=== PATIENT | female | born 1990 | race Caucasian/White ===

== ENCOUNTER 2016-07-03 13:38 | Inpatient (IN) | payer OTHER ==
[2016-07-04] MEDS ORDERED: Sodium Chloride 0.9% 10 ML Syringe FLUSH PRN (19:01)
--- NOTE | 2016-07-04 19:09 | PCM.LDHP ---
L&D History of Present Illness - General Date of Service: 07/04/16 Admit Problem/Dx: Admission Diagnosis/Problem Admission Diagnosis/Problem Source of Information: Patient History Limitations: Reports: No limitations - History of Present Illness Introduction:: 25 y/o DONAVON 07/03/2016 EGLizbeth 40w2d presented to L&D for induction of labor GBS negative. Improves with: Reports: None Worsens with: Reports: None Associated Symptoms: Reports: N Past Medical History : 1 Para: 0 (0000) LMP (Approximate): Social & Family History - Family History Respiratory: Reports: Asthma (brother sports inducted), Other (see below) ( brother seasonal allergy) Hematologic: Reports: Other (see below) (maternal grandfather lymphoid cancer) H&P Review of Systems - Review of Systems: Review Of Systems: See Below General: Reports: no symptoms HEENT: Reports: no symptoms Pulmonary: Reports: No Symptoms Cardiovascular: Reports: no symptoms Gastrointestinal: Reports: No symptoms Genitourinary: Reports: no symptoms Musculoskeletal: Reports: no symptoms Skin: Reports: no symptoms Psychiatric: Reports: no symptoms Neurological: Reports: No Symptoms Hematologic/Lymphatic: Reports: no symptoms Immunologic: Reports: no symptoms L&D Exam - Exam Exam: See Below - OB Specific Fundal Height in cm: 38 movement: active heart tones: present heart tones per min: 140 Heart Rate (FHR) Variability: Moderate (6-25 bmp) Presentation: Vertex - Summers Score Summers Score Cervix Position: Posterior Summers Score Consistency: Soft Summers Score Effacement: >80% Summers Score Dilation: 1-2 cm Summers Score 's Station: -1 ,0 Summers Score Total: 8 - Exam General: alert, oriented HEENT: Mucosa moist & pink Neck: supple, trachea midline Lungs: Clear to auscultation, Normal respiratory effort Cardiovascular: regular rate, regular rhythm Abdomen: normal bowel sounds, soft Genitourinary: Normal external exam Extremities: normal inspection Skin: warm, dry, intact Psychiatric: alert, normal affect, normal mood - Problem List (1) 40 weeks gestation of SNOMED Code(s): 02014109 ICD Code: Z3A.40 - 40 WEEKS GESTATION OF Status: Acute Current Visit: Yes Problem List Initiated/Reviewed/Updated: No Orders Last 24hrs: Active Orders 24 hr Category Date Time Status Communication Order [RC] ASDIRECTED Care 07/04/16 19:01 Ordered Communication Order [RC] ASDIRECTED Care 07/04/16 19:01 Ordered Communication Order [RC] ASDIRECTED Care 07/04/16 19:01 Ordered Monitoring [RC] INTERMITTENT Care 07/04/16 19:01 Ordered Notify Provider [RC] ASDIRECTED Care 07/04/16 19:01 Ordered Peripheral IV Care [RC] . DIRECTED Care 07/04/16 19:01 Ordered Vaginal Exam [RC] ASDIRECTED Care 07/04/16 19:01 Ordered Vital Signs [RC] ASDIRECTED Care 07/04/16 19:01 Ordered Clear Liquid Diet [DIET] Diet 07/04/16 Dinner Ordered Lactated Ringers [Ringers, Lactated] 1,000 ml Med 07/04/16 19:15 Ordered IV ASDIRECTED Misoprostol [Cytotec] Med 07/04/16 20:00 Ordered 25 mcg VAG Q4H Oxytocin/Lactated Ringers [Pitocin in LR 10 Units/1,000 Med 07/04/16 19:15 Ordered ML] 10 unit in 1,000 ml IV TITRATE Sodium Chloride 0.9% [Saline Flush] Med 07/04/16 19:01 Ordered 10 ml FLUSH ASDIRECTED PRN Peripheral IV Insertion Adult [OM.PC] Routine Oth 07/04/16 19:01 Ordered Assessment/Plan Comment:: Plan Induction and delivery
[2016-07-04] MEDS ORDERED: Oxytocin/Lactated Ringers 10 UNIT/1,000 ML BAG IV SCH ×2 (19:15→21:45)
[2016-07-04] MEDS ORDERED: Lactated Ringers 1,000 ML IV SCH (19:15)
[2016-07-04] MEDS ORDERED: Misoprostol 25 MCG (1/4 of 100 MCG) Tab ONE (20:40)
[2016-07-04] MEDS: Misoprostol 100 MCG Tab VAG SCH (20:48)
[2016-07-04] MEDS ORDERED: Aluminum Hydroxide/Magnesium Hydroxide/Simethicone Susp 30 ML Cup PO PRN (21:44)
[2016-07-04] MEDS ORDERED: Lidocaine 1% 50 ML MDV INJECT PRN (21:44)
[2016-07-04] MEDS ORDERED: Nalbuphine 20 MG/1 ML Amp IVPUSH PRN (21:44)
[2016-07-04] MEDS ORDERED: Ondansetron 4 MG/2 ML SDV IVPUSH PRN (21:44)
[2016-07-05] MEDS ORDERED: Misoprostol 25 MCG (1/4 of 100 MCG) Tab ONE (00:40)
[2016-07-05] MEDS: Misoprostol 100 MCG Tab VAG SCH ×2 (00:52→07:29)
--- NOTE | 2016-07-05 04:20 | PCM.PREANE ---
Preanesthetic Assessment - Procedure Proposed Procedure: Labor Epidural - Anesthesia/Transfusion/Family Hx Anesthesia History: Prior Anesthesia Without Reaction Family History of Anesthesia Reaction: No Transfusion History: No Prior Transfusion(s) - Review of Systems General: No Symptoms Pulmonary: No Symptoms Cardiovascular: No Symptoms Gastrointestinal: No symptoms Neurological: No Symptoms Other: Reports: None - Physical Assessment NPO Status Date: 07/04/16 NPO Status Time: 17:15 O2 Sat by Pulse Oximetry: 100 Respiratory Rate: 15 Vital Signs: Last Vital Signs Temp 36.5 C 07/04/16 19:01 Pulse 99 07/04/16 19:01 Resp 15 07/04/16 19:01 BP 119/68 07/04/16 19:01 Pulse Ox 100 07/04/16 19:01 Height: 1.63 m Weight: 90.129 kg ASA Class: 2 Mental Status: Alert & Oriented x3 Airway Class: Mallampati = 1 Dentition: Reports: Normal Dentition Thyro-Mental Finger Breadths: 3 Mouth Opening Finger Breadths: 3 ROM/Head Extension: Full Lungs: Clear to auscultation, Normal respiratory effort Cardiovascular: Regular Rate, Regular Rhythm - Lab Values: Laboratory Last Values WBC 16.24 K/mm3 (3.98-10.04) H 07/04/16 21:55 RBC 4.40 M/mm3 (3.98-5.22) 07/04/16 21:55 Hgb 13.6 gm/L (11.2-15.7) 07/04/16 21:55 Hct 39.6 % (34.1-44.9) 07/04/16 21:55 MCV 90.0 fl (79.4-94.8) 07/04/16 21:55 MCH 30.9 pg (25.6-32.2) 07/04/16 21:55 MCHC 34.3 g/dl (32.2-35.5) 07/04/16 21:55 RDW Std Deviation 40.9 fL (36.4-46.3) 07/04/16 21:55 Plt Count 197 K/mm3 (182-369) 07/04/16 21:55 MPV 12.6 fl (9.4-12.3) H 07/04/16 21:55 Neut % (Auto) 73.7 % (34.0-71.1) H 07/04/16 21:55 Lymph % (Auto) 16.9 % (19.3-51.7) L 07/04/16 21:55 Hale % (Auto) 7.5 % (4.7-12.5) 07/04/16 21:55 Eos % (Auto) 1.0 (0.7-5.8) 07/04/16 21:55 Baso % (Auto) 0.2 % (0.1-1.2) 07/04/16 21:55 Neut # (Auto) 11.96 K/mm3 (1.56-6.13) H 07/04/16 21:55 Lymph # (Auto) 2.74 K/mm3 (1.18-3.74) 07/04/16 21:55 Hale # (Auto) 1.22 K/mm3 (0.24-0.36) H 07/04/16 21:55 Eos # (Auto) 0.16 K/mm3 (0.04-0.36) 07/04/16 21:55 Baso # (Auto) 0.04 K/mm3 (0.01-0.08) 07/04/16 21:55 Manual Slide Review Normal smear 07/04/16 21:55 Blood Type A POSITIVE 07/04/16 21:55 Gel Antibody Screen Negative 07/04/16 21:55 - Allergies Allergies/Adverse Reactions: Allergies Allergy/AdvReac Type Severity Reaction Status Date / Time No Known Allergies Allergy Verified 07/04/16 21:43 - Blood Blood Available: No - Acknowledgements Anesthesia Type Planned: Epidural Pt an Appropriate Candidate for the Planned Anesthesia: Yes Alternatives and Risks of Anesthesia Discussed w Pt/Guardian: Yes Pt/Guardian Understands and Agrees with Anesthesia Plan: Yes PreAnesthesia Questionnaire Musculoskeletal History: Reports: Fracture, Other (see below) Other Musculoskeletal History: middle finger left hand x 2 surgery (2013) - Past Surgical History HEENT Surgical History: Reports: Oral surgery Other HEENT Surgeries/Procedures: wisdom teeth (2009) Musculoskeletal Surgical History: Reports: None - SUBSTANCE USE Smoking Status *Q: Never Smoker Tobacco Use Within Last Twelve Months: No Second Hand Smoke Exposure: No Days Per Week of Alcohol Use: 0 Recreational Drug Use History: No - CURRENT (IN HOUSE) MEDS Current Meds: Current Medications Al Hydroxide/Mg Hydroxide (Mag-Al Plus) 30 ml PO Q8H PRN PRN Reason: Heartburn Fentanyl/Bupivacaine HCl (Fentanyl/Bupivacaine/Ns 2 Mcg-0.125% 100 Ml) 100 ml EPIDUR ASDIRECTED [facility] Lactated Ringer's (Ringers, Lactated) 1,000 mls @ 40 mls/hr IV ASDIRECTED [facility] Last Admin: 07/05/16 00:49 Dose: 40 mls/hr Oxytocin/Lactated Ringer's (Pitocin In Lr 10 Units/1,000 Ml) 10 unit in 1,000 mls @ 12 mls/hr IV TITRATE JOSUÉ; 2 MUNITS/MIN PRN Reason: Protocol Oxytocin/Lactated Ringer's (Pitocin In Lr 10 Units/1,000 Ml) 10 unit in 1,000 mls @ 500 mls/hr IV ASDIRECTED [facility] Lidocaine HCl (Xylocaine 1%) 50 ml INJECT ONETIME PRN PRN Reason: perineal pain Nalbuphine HCl (Nubain) 10 mg IVPUSH Q2H PRN PRN Reason: Pain (moderate 4-6) Ondansetron HCl (Zofran) 4 mg IVPUSH Q4H PRN PRN Reason: Nausea/Vomiting Sodium Chloride (Saline Flush) 10 ml FLUSH ASDIRECTED PRN PRN Reason: Keep Vein Open Discontinued Medications Misoprostol (Cytotec) 25 mcg VAG Q4H [facility] Stop: 07/05/16 04:01 Last Admin: 07/05/16 00:52 Dose: 25 mcg Misoprostol (Cytotec) Confirm Administered Dose 25 mcg .ROUTE .STK-MED ONE Stop: 07/04/16 20:41 Last Admin: 07/04/16 20:47 Dose: Not Given Misoprostol (Cytotec) Confirm Administered Dose 25 mcg .ROUTE .STK-MED ONE Stop: 07/05/16 00:41 Last Admin: 07/05/16 00:52 Dose: Not Given Preanesthetic Assessment - ANESTHESIA/TRANSFUSION/FAMILY HX Family History of Anesthesia Reaction: No - PHYSICAL ASSESSMENT O2 Sat by Pulse Oximetry: 100 RR: 15 Vital Signs: Last Vital Signs Temp 36.5 C 07/04/16 19:01 Pulse 99 07/04/16 19:01 Resp 15 07/04/16 19:01 BP 119/68 07/04/16 19:01 Pulse Ox 100 07/04/16 19:01 Height: 1.63 m Weight: 90.129 kg - LAB Values: Laboratory Last Values WBC 16.24 K/mm3 (3.98-10.04) H 07/04/16 21:55 RBC 4.40 M/mm3 (3.98-5.22) 07/04/16 21:55 Hgb 13.6 gm/L (11.2-15.7) 07/04/16 21:55 Hct 39.6 % (34.1-44.9) 07/04/16 21:55 MCV 90.0 fl (79.4-94.8) 07/04/16 21:55 MCH 30.9 pg (25.6-32.2) 07/04/16 21:55 MCHC 34.3 g/dl (32.2-35.5) 07/04/16 21:55 RDW Std Deviation 40.9 fL (36.4-46.3) 07/04/16 21:55 Plt Count 197 K/mm3 (182-369) 07/04/16 21:55 MPV 12.6 fl (9.4-12.3) H 07/04/16 21:55 Neut % (Auto) 73.7 % (34.0-71.1) H 07/04/16 21:55 Lymph % (Auto) 16.9 % (19.3-51.7) L 07/04/16 21:55 Hale % (Auto) 7.5 % (4.7-12.5) 07/04/16 21:55 Eos % (Auto) 1.0 (0.7-5.8) 07/04/16 21:55 Baso % (Auto) 0.2 % (0.1-1.2) 07/04/16 21:55 Neut # (Auto) 11.96 K/mm3 (1.56-6.13) H 07/04/16 21:55 Lymph # (Auto) 2.74 K/mm3 (1.18-3.74) 07/04/16 21:55 Hale # (Auto) 1.22 K/mm3 (0.24-0.36) H 07/04/16 21:55 Eos # (Auto) 0.16 K/mm3 (0.04-0.36) 07/04/16 21:55 Baso # (Auto) 0.04 K/mm3 (0.01-0.08) 07/04/16 21:55 Manual Slide Review Normal smear 07/04/16 21:55 Blood Type A POSITIVE 07/04/16 21:55 Gel Antibody Screen Negative 07/04/16 21:55 - ALLERGIES Allergies/Adverse Reactions: Allergies Allergy/AdvReac Type Severity Reaction Status Date / Time No Known Allergies Allergy Verified 07/04/16 21:43
[2016-07-05] MEDS ORDERED: Bupivacaine/fentaNYL/NS 100 ML Bag EPIDUR SCH (04:30)
[2016-07-05] MEDS ORDERED: fentaNYL 100 MCG/2 ML SDV ONE (08:10)
[2016-07-05] MEDS ORDERED: Bupivacaine 0.25% 10 ML SDV ONE (09:00)
--- NOTE | 2016-07-05 09:02 | PCM.DEL ---
L & D Note - General Info Date of Service: 07/05/16 Mother's Due Date: 07/03/16 - Delivery Note Labor: spontaneous Cervical Ripening Method: Misoprostil (x3 25 mcg) Delivery Outcome: Livebirth (Female liveborn MIREYA over second-degree laceration under epidural anesthesia, weighing 7 pounds, 6.9 ounces, 3370 g, Apgars 9/9. At one and 5 minutes, respectively , at 0833 hours on ) Delivery Mode: Spontaneous Presentation: Right Occiput Anterior (MIREYA) Nuchal cord: none Anesthesia Type: Epidural Amniotic Fluid Description: Clear Episiotomy Type: None Laceration: 2nd degree Suture type: other Suture size: 3-0 Placenta: intact, spontaneous (0835 hours, intact. Central cord insertion. ), abnormal (Monocryl x2) Cord: 3 vessels Estimated blood loss: 500 Resuscitation needed: No [place]: suctioned, bulb syringe, cathether, stimulated, warmed, blanket used, warmer used Provider: Wilberto Castellano Score 1 min: 9 Score 5 min: 9 - Patient Data Vitals - most recent: Last Vital Signs Temp 97.7 F 07/04/16 19:01 Pulse 99 07/04/16 19:01 Resp 15 07/05/16 04:26 BP 119/68 07/04/16 19:01 Pulse Ox 100 07/05/16 04:26 Weight - most recent: 198 lb 11.2 oz Lab Results last 24 hrs: Laboratory Results - last 24 hr 07/04/16 07/04/16 Range/Units 21:55 21:55 WBC 16.24 H (3.98-10.04) K/mm3 RBC 4.40 (3.98-5.22) M/mm3 Hgb 13.6 (11.2-15.7) gm/L Hct 39.6 (34.1-44.9) % MCV 90.0 (79.4-94.8) fl MCH 30.9 (25.6-32.2) pg MCHC 34.3 (32.2-35.5) g/dl RDW Std Deviation 40.9 (36.4-46.3) fL Plt Count 197 (182-369) K/mm3 MPV 12.6 H (9.4-12.3) fl Neut % (Auto) 73.7 H (34.0-71.1) % Lymph % (Auto) 16.9 L (19.3-51.7) % [place] % (Auto) 7.5 (4.7-12.5) % Eos % (Auto) 1.0 (0.7-5.8) Baso % (Auto) 0.2 (0.1-1.2) % Neut # (Auto) 11.96 H (1.56-6.13) K/mm3 Lymph # (Auto) 2.74 (1.18-3.74) K/mm3 [place] # (Auto) 1.22 H (0.24-0.36) K/mm3 Eos # (Auto) 0.16 (0.04-0.36) K/mm3 Baso # (Auto) 0.04 (0.01-0.08) K/mm3 Manual Slide Review Normal smear Blood Type A POSITIVE Gel Antibody Screen Negative Med Orders - Current: Current Medications Al Hydroxide/Mg Hydroxide (Mag-Al Plus) 30 ml PO Q8H PRN PRN Reason: Heartburn Fentanyl/Bupivacaine HCl (Fentanyl/Bupivacaine/Ns 2 Mcg-0.125% 100 Ml) 100 ml EPIDUR ASDIRECTED REPLACED BY [facility] Last Admin: 07/05/16 05:03 Dose: 100 ml Lactated Ringer's (Ringers, Lactated) 1,000 mls @ 40 mls/hr IV ASDIRECTED REPLACED BY [facility] Last Admin: 07/05/16 00:49 Dose: 40 mls/hr Oxytocin/Lactated Ringer's (Pitocin In Lr 10 Units/1,000 Ml) 10 unit in 1,000 mls @ 12 mls/hr IV TITRATE JOSUÉ; 2 MUNITS/MIN PRN Reason: Protocol Oxytocin/Lactated Ringer's (Pitocin In Lr 10 Units/1,000 Ml) 10 unit in 1,000 mls @ 500 mls/hr IV ASDIRECTED REPLACED BY [facility] Last Admin: 07/05/16 08:33 Dose: 500 mls/hr Lidocaine HCl (Xylocaine 1%) 50 ml INJECT ONETIME PRN PRN Reason: perineal pain Nalbuphine HCl (Nubain) 10 mg IVPUSH Q2H PRN PRN Reason: Pain (moderate 4-6) Ondansetron HCl (Zofran) 4 mg IVPUSH Q4H PRN PRN Reason: Nausea/Vomiting Sodium Chloride (Saline Flush) 10 ml FLUSH ASDIRECTED PRN PRN Reason: Keep Vein Open Discontinued Medications Fentanyl (Sublimaze) Confirm Administered Dose 100 mcg .ROUTE .STK-MED ONE Stop: 07/05/16 08:11 Misoprostol (Cytotec) 25 mcg VAG Q4H JOSUÉ Stop: 07/05/16 04:01 Last Admin: 07/05/16 07:29 Dose: Not Given Misoprostol (Cytotec) Confirm Administered Dose 25 mcg .ROUTE .STK-MED ONE Stop: 07/04/16 20:41 Last Admin: 07/04/16 20:47 Dose: Not Given Misoprostol (Cytotec) Confirm Administered Dose 25 mcg .ROUTE .STK-MED ONE Stop: 07/05/16 00:41 Last Admin: 07/05/16 00:52 Dose: Not Given - Problem List & Annotations (1) 40 weeks gestation of SNOMED Code(s): 80567823 Code(s): Z3A.40 - 40 WEEKS GESTATION OF Status: Acute Current Visit: Yes (2) Second degree perineal laceration during delivery SNOMED Code(s): 6219313 Code(s): O70.1 - SECOND DEGREE PERINEAL LACERATION DURING DELIVERY Status: Acute Current Visit: Yes - Problem List Review Problem List Initiated/Reviewed/Updated: No - My Orders Last 24 Hours: My Active Orders 07/04/16 19:01 Peripheral IV Care [RC] . DIRECTED Vital Signs [RC] ASDIRECTED Sodium Chloride 0.9% [Saline Flush] 10 ml FLUSH ASDIRECTED PRN Peripheral IV Insertion Adult [OM.PC] Routine 07/04/16 19:15 Lactated Ringers [Ringers, Lactated] 1,000 ml IV ASDIRECTED Oxytocin/Lactated Ringers [Pitocin in LR 10 Units/1,000 ML] 10 unit in 1,000 ml IV TITRATE 07/04/16 21:44 Patient Status [ADT] Routine Activity as Tolerated [RC] Notify Provider [RC] .PRN Alum Hydrox/Mag Hydrox/Simeth [Mag-Al Plus] 30 ml PO Q8H PRN Lidocaine 1% [Xylocaine 1%] 50 ml INJECT ONETIME PRN Nalbuphine [Nubain] 10 mg IVPUSH Q2H PRN Ondansetron [Zofran] 4 mg IVPUSH Q4H PRN Electronic Heart Tones Ext w TOCO [WOMSER] Routine Electronic Heart Tones Internal [WOMSER] Per Unit Routine Resuscitation Status Routine 07/04/16 21:45 Oxytocin/Lactated Ringers [Pitocin in LR 10 Units/1,000 ML] 10 unit in 1,000 ml IV ASDIRECTED 07/04/16 Dinner Clear Liquid Diet [DIET] - Plan Plan:: Plan Induction and delivery
[2016-07-05] MEDS ORDERED: Acetaminophen 325 MG Tab PO PRN (09:22)
[2016-07-05] MEDS ORDERED: Acetaminophen/oxyCODONE 325-5 MG Tab PO PRN (09:22)
[2016-07-05] MEDS ORDERED: Docusate Sodium 100 MG Cap PO PRN (09:22)
[2016-07-05] MEDS ORDERED: Witch Hazel Medicated Pads 100/Jar TOP PRN (10:38)
[2016-07-05] MEDS ORDERED: Benzocaine/Menthol 20%-0.5% Spray 56 GM Canister TOP PRN (10:39)
[2016-07-05] MEDS: Ibuprofen 600 MG Tab PO PRN (21:07)
[2016-07-06] MEDS: Ibuprofen 600 MG Tab PO PRN (06:02)
--- NOTE | 2016-07-06 07:23 | PCM.SN ---
- Free Text/Narrative Note: Afebrile, uterus involuting normally, no heavy vaginal bleeding, noleg cramping , Dr Menard assumes weekend call later today.
--- NOTE | 2016-07-07 08:07 | PCM.DCSUM1 ---
Discharge Summary - Discharge Data Discharge Date: 07/07/16 Discharge Disposition: Home, Self-Care 01 Condition: Good - Patient Instructions Diet: Usual Diet as Tolerated Activity: No Strenuous Activities Activity, Other: pelvic rest Driving: May Drive Today Notify Provider of: Fever, Increased Pain, Swelling and Redness, Drainage, Nausea and/or Vomiting - Discharge Plan Referrals: Wilberto Castellano MD [Primary Care Provider] - - General Info Date of Service: 07/07/16 Functional Status: Reports: pain controlled - Review of Systems General: Reports: No Symptoms HEENT: Reports: no symptoms Pulmonary: Reports: no symptoms Cardiovascular: Reports: No Symptoms Gastrointestinal: Reports: No symptoms Genitourinary: Reports: no symptoms Musculoskeletal: Reports: no symptoms Skin: Reports: no symptoms Neurological: Reports: No Symptoms Psychiatric: Reports: no symptoms - Patient Data Vitals - Most Recent: Last Vital Signs Temp 36.8 C 07/07/16 04:22 Pulse 106 H 07/07/16 04:22 Resp 16 07/07/16 04:22 BP 122/69 07/07/16 04:22 Pulse Ox 100 07/07/16 04:22 Weight - Most Recent: 90.129 kg I&O - Last 24 hours: Intake & Output 07/06/16 07/07/16 07/07/16 22:59 06:59 14:59 Intake Total 520 Balance 520 Med Orders - Current: Current Medications Acetaminophen (Tylenol) 650 mg PO Q4H PRN PRN Reason: mild pain or fever Benzocaine/Menthol (Dermoplast Pain Relief [place]) 56 gm TOP ASDIRECTED PRN PRN Reason: nayeli care Last Admin: 07/05/16 10:50 Dose: 1 can Docusate Sodium (Colace) 100 mg PO BID PRN PRN Reason: Constipation Ibuprofen (Motrin) 600 mg PO Q4H PRN PRN Reason: Mild pain or fever Last Admin: 07/06/16 06:02 Dose: 600 mg Oxycodone/Acetaminophen (Percocet 325-5 Mg) 2 tab PO Q4H PRN PRN Reason: Pain (moderate 4-6) Witch Madhavi (Tucks) 1 pad TOP ASDIRECTED PRN PRN Reason: nayeli care Last Admin: 07/05/16 10:50 Dose: 1 box Discontinued Medications Al Hydroxide/Mg Hydroxide (Mag-Al Plus) 30 ml PO Q8H PRN PRN Reason: Heartburn Fentanyl (Sublimaze) Confirm Administered Dose 100 mcg .ROUTE .STK-MED ONE Stop: 07/05/16 08:11 Last Admin: 07/05/16 19:24 Dose: Not Given Fentanyl/Bupivacaine HCl (Fentanyl/Bupivacaine/Ns 2 Mcg-0.125% 100 Ml) 100 ml EPIDUR ASDIRECTED [facility] Last Admin: 07/05/16 05:03 Dose: 100 ml Lactated Ringer's (Ringers, Lactated) 1,000 mls @ 40 mls/hr IV ASDIRECTED [facility] Last Admin: 07/05/16 00:49 Dose: 40 mls/hr Oxytocin/Lactated Ringer's (Pitocin In Lr 10 Units/1,000 Ml) 10 unit in 1,000 mls @ 12 mls/hr IV TITRATE JOSUÉ; 2 MUNITS/MIN PRN Reason: Protocol Oxytocin/Lactated Ringer's (Pitocin In Lr 10 Units/1,000 Ml) 10 unit in 1,000 mls @ 500 mls/hr IV ASDIRECTED [facility] Last Admin: 07/05/16 08:33 Dose: 500 mls/hr Lidocaine HCl (Xylocaine 1%) 50 ml INJECT ONETIME PRN PRN Reason: perineal pain Misoprostol (Cytotec) 25 mcg VAG Q4H [facility] Stop: 07/05/16 04:01 Last Admin: 07/05/16 07:29 Dose: Not Given Misoprostol (Cytotec) Confirm Administered Dose 25 mcg .ROUTE .STK-MED ONE Stop: 07/04/16 20:41 Last Admin: 07/04/16 20:47 Dose: Not Given Misoprostol (Cytotec) Confirm Administered Dose 25 mcg .ROUTE .STK-MED ONE Stop: 07/05/16 00:41 Last Admin: 07/05/16 00:52 Dose: Not Given Nalbuphine HCl (Nubain) 10 mg IVPUSH Q2H PRN PRN Reason: Pain (moderate 4-6) Ondansetron HCl (Zofran) 4 mg IVPUSH Q4H PRN PRN Reason: Nausea/Vomiting Sodium Chloride (Saline Flush) 10 ml FLUSH ASDIRECTED PRN PRN Reason: Keep Vein Open - Exam General: Reports: alert, oriented HEENT: Reports: Pupils equal, Pupils reactive, EOMI, Mucous membr. moist/pink Neck: Reports: supple Lungs: Reports: Clear to auscultation, Normal respiratory effort Cardiovascular: Reports: Regular Rate, Regular Rhythm Abdomen: Reports: bowel sounds present, soft, no tenderness, no distension Back Exam: Reports: normal inspection, full range of motion Extremities: Reports: no edema, normal pulses Skin: Reports: warm, dry, intact Wound/Incisions: Reports: healing well Neurological: Reports: no new focal deficit Psy/Mental Status: Reports: alert, normal affect, normal mood *Q Meaningful Use (DIS) - VTE *Q VTE Criteria *Q: - Stroke *Q Stroke Criteria *Q: - AMI *Q AMI Criteria *Q:
[2016-07-07 14:15] VITALS: BP 112/62
== END 2016-07-07 13:00 | disposition home or self-care (01) | DRG 775 ==
LOC: MERGE 16:11 → EDSTATUS 18:48 → JD.OB 07-04 08:33 → OBSVTOIN 07-05 08:33 → JD.OB 07-05 08:33
PROVIDERS: ADMIT Obstetrics & Gynecology; ATTEND Obstetrics & Gynecology
PROC: 10E0XZZ Delivery of Products of Conception, External Approach (ICD-10-PCS; principal; 2016-07-05)
PROC: 0KQM0ZZ Repair Perineum Muscle, Open Approach (ICD-10-PCS; 2016-07-05)
PROC: 3E0P7GC Introduction of Other Therapeutic Substance into Female Reproductive, Via Natural or Artificial Opening (ICD-10-PCS; 2016-07-05)
PROC: 00HU33Z Insertion of Infusion Device into Spinal Canal, Percutaneous Approach (ICD-10-PCS; 2016-07-05)
PROC: 3E0R3CZ (ICD-10-PCS; 2016-07-05)
DX: O70.1 Second degree perineal laceration during delivery (principal); Z37.0 Single live birth; Z3A.40 40 weeks gestation of pregnancy
CPT/HCPCS: 36415; 85025; 86850; 86900; 86901; A9270-GY; J2590; J7120

== ENCOUNTER 2019-05-19 06:36 | Inpatient (IN) | payer OTHER ==
[~2019-05-19 06:36] MED LIST: Bupivacaine 0.25% 10 ML SDV ONE
[2019-05-19] MEDS ORDERED: Lidocaine 1% 50 ML MDV INJECT ONE (07:22)
[2019-05-19] MEDS ORDERED: Sodium Chloride 0.9% 10 ML Syringe FLUSH PRN (07:22)
[2019-05-19] MEDS ORDERED: Ondansetron 4 MG/2 ML SDV IVPUSH PRN (07:22)
[2019-05-19] MEDS ORDERED: Calcium Carbonate 500 MG Tab.Chew PO PRN (07:22)
[2019-05-19] MEDS ORDERED: Nalbuphine 10 MG/ML Syringe IVPUSH PRN (07:22)
--- NOTE | 2019-05-19 07:28 | PCM.HP.2 ---
<Dago Pike - Last Filed: 05/19/19 08:01> H&P History of Present Illness - General Date of Service: 05/19/19 Admit Problem/Dx: Induction of labor and delivery Source of Information: Patient History Limitations: Reports: No Limitations - History of Present Illness Initial Comments - Free Text/Narative: Ms. Sindy Dunn is a pleasant 28 yo F, who presents to L&D around 0700 today (05/19/2019) for her scheduled induction of labor and then delivery. Ms. Dunn has an DONAVON of 05/23/2019 and is 39-3 today. She has been seeing Dr. Castellano for her care and Dr. Castellano is planned to be present for delivery. On last manual exam (05.11.2019) per Dr. Castellano she was 1cm, 10%, soft, posterior , vertex -3. On Dr. Castellano's exam this morning she was 2cm, 80%, soft, posterior, vertex -1. Pt admits that she is carrying a little girl. Upon presentation, Ms. Dunn denies having regular contractions admitting to having a few "random ones". She admits to feeling pressure during those contractions and rating her pain maybe a 2/10. Denies that water has broken. She admits to some rib pain as well but that has been a constant throughout her . admits baby is very active, denies other cramping and spotting. also endorses using the bathroom very frequently. She desires an epidural for this delivery. Her first she was induced and had a vaginal delivery. She was induced at 1999, "but i only had to push for 10 min" - baby born around 0800 the next morning. She endorses having an epidural last time and tolerating it well. Her first baby was girl who was almost 3 yo now without complications. 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 Denies htn, bleeding disorders, diabetes ever or during this GBS: negative Blood Type: A+ Labs: (02/2019) - WBC: 12.58 - RBC: 4.20 - Hgb: 13.0 - Hct: 37.7 - Plt: 216 U/S: (01/08/19) - cephalic presentation - placenta: anterior with no findings of PP - ANALY: 13.8 - cord: 3 vessels appreciated - impression: "single intrauterine fetus currently cephalic in presentation, no abnormality is appreciated on anatomic survey" - Related Data Allergies/Adverse Reactions: Allergies Allergy/AdvReac Type Severity Reaction Status Date / Time No Known Allergies Allergy Verified 05/19/19 07:28 Home Medications: Home Meds No122/Iron/Folic Acid [ Multi Tablet] 1 each PO DAILY 05/19/19 [History] Past Medical History Musculoskeletal History: Reports: Fracture, Other (See Below) Other Musculoskeletal History: middle finger left hand x 2 surgery (2013) - Past Surgical History HEENT Surgical History: Reports: Oral Surgery Social & Family History - Family History Family Medical History: Noncontributory Respiratory: Reports: Asthma, Other (See Below) Hematologic: Reports: Other (See Below) - Caffeine Use Caffeine Use: Reports: None H&P Review of Systems - Review of Systems: Review Of Systems: See Below General: Reports: Night Sweats (admits to this happening for the past 3 weeks, maybe 2x a night every day. denies having this before or in her first . ) HEENT: Reports: No Symptoms Pulmonary: Reports: Shortness of Breath (admits to some SOB while walking aroudn the house with and her other child. SOB resolves when she rests. ) Cardiovascular: Reports: No Symptoms Gastrointestinal: Reports: No Symptoms Genitourinary: Reports: Other (has noticed more vaginal secretions as she has gotten closer to her DONAVON - denies blood, foul smelling) Musculoskeletal: Reports: No Symptoms Skin: Reports: No Symptoms Psychiatric: Reports: No Symptoms Neurological: Reports: No Symptoms Hematologic/Lymphatic: Reports: No Symptoms Exam - Exam Exam: See Below - Exam General: Alert, Oriented HEENT: Conjunctiva Clear, Hearing Intact, Nares Patent, Pupils Equal, Pupils Reactive Neck: Supple, Trachea Midline Lungs: Clear to Auscultation, Normal Respiratory Effort Cardiovascular: Regular Rate, Regular Rhythm (no M,R,G), Normal S1, Normal S2 Back Exam: Normal Inspection, Full Range of Motion Extremities: Normal Inspection, Normal Range of Motion, No Pedal Edema Peripheral Pulses: 2+: Radial (L) (symmetric bilaterally), Radial (R) ( symmetric bilaterally), Posterior Tibial (L) (symmetric bilaterally), Posterior Tibial (R) (symmetric bilaterally) Skin: Warm, Dry, Intact Neuro Extensive - Mental Status: Alert, Oriented x3, Normal Mood/Affect, Normal Cognition, Memory Intact Psychiatric: Alert, Normal Affect, Normal Mood Problem List Initiated/Reviewed/Updated: Yes - Mortality Measure Prognosis:: Good <Wilberto Castellano - Last Filed: 05/19/19 08:10> H&P History of Present Illness - General Admit Problem/Dx: Admission Diagnosis/Problem Admission Diagnosis/Problem Term - Patient Data Lab Results Last 24 hrs: Laboratory Results - last 24 hr 05/19/19 Range/Units 07:35 WBC 12.75 H (3.98-10.04) K/mm3 RBC 4.14 (3.98-5.22) M/mm3 Hgb 11.5 D (11.2-15.7) gm/dl Hct 35.9 (34.1-44.9) % MCV 86.7 D (79.4-94.8) fl MCH 27.8 (25.6-32.2) pg MCHC 32.0 L (32.2-35.5) g/dl RDW Std Deviation 40.2 (36.4-46.3) fL Plt Count 183 (182-369) K/mm3 MPV 12.6 H (9.4-12.3) fl Neut % (Auto) 72.5 H (34.0-71.1) % Lymph % (Auto) 17.3 L (19.3-51.7) % [place] % (Auto) 8.4 (4.7-12.5) % Eos % (Auto) 0.9 (0.7-5.8) Baso % (Auto) 0.2 (0.1-1.2) % Neut # (Auto) 9.23 H (1.56-6.13) K/mm3 Lymph # (Auto) 2.21 (1.18-3.74) K/mm3 [place] # (Auto) 1.07 H (0.24-0.36) K/mm3 Eos # (Auto) 0.12 (0.04-0.36) K/mm3 Baso # (Auto) 0.03 (0.01-0.08) K/mm3 Result Diagrams: 05/19/19 07:35 - Problem List (1) 39 weeks gestation of SNOMED Code(s): 57745113 ICD Code: Z3A.39 - 39 WEEKS GESTATION OF Status: Acute Current Visit: Yes Problem List Initiated/Reviewed/Updated: No Orders Last 24hrs: Active Orders 24 hr Category Date Time Status Patient Status [ADT] Routine ADT 05/19/19 07:22 Active Activity as Tolerated [RC] PFP Care 05/19/19 07:22 Active Communication Order [RC] ASDIRECTED Care 05/19/19 07:22 Active Communication Order [RC] ASDIRECTED Care 05/19/19 07:22 Active Communication Order [RC] ASDIRECTED Care 05/19/19 07:22 Active Communication Order [RC] ASDIRECTED Care 05/19/19 07:22 Active Heart Tones [RC] ASDIRECTED Care 05/19/19 07:23 Active Monitoring [RC] INTERMITTENT Care 05/19/19 07:22 Active Non Stress Test [RC] PER UNIT ROUTINE Care 05/19/19 07:22 Active Notify Provider [RC] ASDIRECTED Care 05/19/19 07:22 Active Notify Provider [RC] PFP Care 05/19/19 07:22 Active Notify Provider [RC] PRN Care 05/19/19 07:22 Active Peripheral IV Care [RC] . DIRECTED Care 05/19/19 07:23 Active Pump Management, Intrathecal [RC] ASDIRECTED Care 05/19/19 07:24 Active Urinary Catheter Assessment [RC] ASDIRECTED Care 05/19/19 07:22 Active Vaginal Exam [RC] ASDIRECTED Care 05/19/19 07:22 Active Vital Signs [RC] PER UNIT ROUTINE Care 05/19/19 07:22 Active Regular Diet [DIET] Diet 05/19/19 Breakfast Active RAPID PLASMA REAGIN,RPR [CHEM] Stat Lab 05/19/19 07:35 Received TYPE AND SCREEN [BBK] Stat Lab 05/19/19 07:35 Received Calcium Carbonate [Tums] Med 05/19/19 07:22 Active 1,000 mg PO Q2H PRN Lactated Ringers [Ringers, Lactated] 1,000 ml Med 05/19/19 07:30 Active IV ASDIRECTED Nalbuphine [Nubain] Med 05/19/19 07:22 Active 10 mg IVPUSH Q2H PRN Ondansetron [Zofran] Med 05/19/19 07:22 Active 4 mg IVPUSH Q4H PRN Oxytocin/Lactated Ringers [Pitocin in LR 10 Units/1,000 Med 05/19/19 07:30 Active ML] 10 unit in 1,000 ml IV .CONTINUOUS Oxytocin/Lactated Ringers [Pitocin in LR 10 Units/1,000 Med 05/19/19 07:30 Active ML] 10 unit in 1,000 ml IV TITRATE Sodium Chloride 0.9% [Saline Flush] Med 05/19/19 07:22 Active 10 ml FLUSH ASDIRECTED PRN Electronic Heart Tones Ext w TOCO [WOMSER] Oth 05/19/19 07:22 Ordered Routine Electronic Heart Tones Internal [WOMSER] Per Unit Oth 05/19/19 07:22 Ordered Routine Peripheral IV Insertion Adult [OM.PC] Routine Oth 05/19/19 07:22 Ordered Resuscitation Status Routine Resus Stat 05/19/19 07:22 Ordered Medication Orders Calcium Carbonate/Glycine (Tums) 1,000 mg PO Q2H PRN PRN Reason: Indigestion Lactated Ringer's (Ringers, Lactated) 1,000 mls @ 100 mls/hr IV ASDIRECTED JOSUÉ Last Admin: 05/19/19 07:39 Dose: 40 mls/hr Oxytocin/Lactated Ringer's (Pitocin In Lr 10 Units/1,000 Ml) 10 unit in 1,000 mls @ 12 mls/hr IV TITRATE JOSUÉ; Protocol Last Titration: 05/19/19 08:07 Dose: 4 munits/min, 24 mls/hr Admin: 05/19/19 07:39 Dose: 2 munits/min, 12 mls/hr Oxytocin/Lactated Ringer's (Pitocin In Lr 10 Units/1,000 Ml) 10 unit in 1,000 mls @ 500 mls/hr IV .CONTINUOUS JOSUÉ Nalbuphine HCl (Nubain) 10 mg IVPUSH Q2H PRN PRN Reason: Pain Ondansetron HCl (Zofran) 4 mg IVPUSH Q4H PRN PRN Reason: Nausea/Vomiting Sodium Chloride (Saline Flush) 10 ml FLUSH ASDIRECTED PRN PRN Reason: Keep Vein Open Patient seen and examined by me and discussed with student. Plan delivery. Amniotomy performed at 0806 Clear fluid, Cat I FHR. - Mortality Measure Prognosis:: Good
[2019-05-19] MEDS ORDERED: Oxytocin/Lactated Ringers 10 UNIT/1,000 ML BAG IV SCH ×2 (07:30)
[2019-05-19] MEDS ORDERED: Lactated Ringers 1,000 ML ONE (07:31)
[2019-05-19] MEDS: Lactated Ringers 1,000 ML IV SCH ×2 (07:39→11:00)
[2019-05-19] MEDS ORDERED: ePHEDrine 50 MG/ML SDV IVPUSH PRN (10:24)
[2019-05-19] MEDS ORDERED: fentaNYL 100 MCG/2 ML SDV EPIDUR PRN (10:24)
[2019-05-19] MEDS ORDERED: diphenhydrAMINE 50 MG/ML SDV IVPUSH PRN (10:24)
--- NOTE | 2019-05-19 10:36 | PCM.SN ---
- Free Text/Narrative Note: Cervix 3 cm,80-90 %, soft, posterior, vertex 0/+1. Cat I FHR Epidural to be placed.
--- NOTE | 2019-05-19 11:13 | PCM.PREANE ---
Preanesthetic Assessment - Anesthesia/Transfusion/Family Hx Anesthesia History: Prior Anesthesia Without Reaction Family History of Anesthesia Reaction: No Transfusion History: No Prior Transfusion(s) - Review of Systems General: No Symptoms Pulmonary: No Symptoms Cardiovascular: No Symptoms Gastrointestinal: No Symptoms Neurological: No Symptoms Other: Reports: None - Physical Assessment Vital Signs: Last Vital Signs Temp 37.4 C 05/19/19 07:22 Pulse 95 05/19/19 07:22 Resp 16 05/19/19 07:22 BP 119/73 05/19/19 07:22 Pulse Ox 97 05/19/19 07:22 Height: 1.63 m Weight: 92.941 kg ASA Class: 2 Mental Status: Alert & Oriented x3 Airway Class: Mallampati = 2 Dentition: Reports: Normal Dentition Thyro-Mental Finger Breadths: 3 Mouth Opening Finger Breadths: 3 ROM/Head Extension: Full Lungs: Clear to Auscultation, Normal Respiratory Effort Cardiovascular: Regular Rate, Regular Rhythm - Lab Values: Laboratory Last Values WBC 12.75 K/mm3 (3.98-10.04) H 05/19/19 07:35 RBC 4.14 M/mm3 (3.98-5.22) 05/19/19 07:35 Hgb 11.5 gm/dl (11.2-15.7) D 05/19/19 07:35 Hct 35.9 % (34.1-44.9) 05/19/19 07:35 MCV 86.7 fl (79.4-94.8) D 05/19/19 07:35 MCH 27.8 pg (25.6-32.2) 05/19/19 07:35 MCHC 32.0 g/dl (32.2-35.5) L 05/19/19 07:35 RDW Std Deviation 40.2 fL (36.4-46.3) 05/19/19 07:35 Plt Count 183 K/mm3 (182-369) 05/19/19 07:35 MPV 12.6 fl (9.4-12.3) H 05/19/19 07:35 Neut % (Auto) 72.5 % (34.0-71.1) H 05/19/19 07:35 Lymph % (Auto) 17.3 % (19.3-51.7) L 05/19/19 07:35 [place] % (Auto) 8.4 % (4.7-12.5) 05/19/19 07:35 Eos % (Auto) 0.9 (0.7-5.8) 05/19/19 07:35 Baso % (Auto) 0.2 % (0.1-1.2) 05/19/19 07:35 Neut # (Auto) 9.23 K/mm3 (1.56-6.13) H 05/19/19 07:35 Lymph # (Auto) 2.21 K/mm3 (1.18-3.74) 05/19/19 07:35 [place] # (Auto) 1.07 K/mm3 (0.24-0.36) H 05/19/19 07:35 Eos # (Auto) 0.12 K/mm3 (0.04-0.36) 05/19/19 07:35 Baso # (Auto) 0.03 K/mm3 (0.01-0.08) 05/19/19 07:35 Blood Type A POSITIVE 05/19/19 07:35 Gel Antibody Screen Negative 05/19/19 07:35 - Allergies Allergies/Adverse Reactions: Allergies Allergy/AdvReac Type Severity Reaction Status Date / Time No Known Allergies Allergy Verified 05/19/19 07:28 - Acknowledgements Anesthesia Type Planned: Epidural Pt an Appropriate Candidate for the Planned Anesthesia: Yes Alternatives and Risks of Anesthesia Discussed w Pt/Guardian: Yes Pt/Guardian Understands and Agrees with Anesthesia Plan: Yes PreAnesthesia Questionnaire HEENT History: Reports: Other (See Below) Other HEENT History: Wears glasses 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: Musculoskeletal History: Reports: Fracture, Other (See Below) Other Musculoskeletal History: middle finger left hand x 2 surgery (2013) - Past Surgical History HEENT Surgical History: Reports: Oral Surgery - SUBSTANCE USE Smoking Status *Q: Never Smoker Recreational Drug Use History: No - HOME MEDS Home Medications: Home Meds No122/Iron/Folic Acid [ Multi Tablet] 1 each PO DAILY 05/19/19 [History] - CURRENT (IN HOUSE) MEDS Current Meds: Current Medications Calcium Carbonate/Glycine (Tums) 1,000 mg PO Q2H PRN PRN Reason: Indigestion Diphenhydramine HCl (Benadryl) 25 mg IVPUSH Q6H PRN PRN Reason: pruritis Stop: 05/19/19 13:00 Ephedrine Sulfate (Ephedrine Sulfate) 5 mg IVPUSH ASDIRECTED PRN PRN Reason: Hypotension Stop: 05/19/19 13:00 Fentanyl (Sublimaze) 100 mcg EPIDUR Q3H PRN PRN Reason: Pain Stop: 05/19/19 13:00 Last Admin: 05/19/19 10:57 Dose: 100 mcg Fentanyl/Bupivacaine HCl (Fentanyl/Bupivacaine/Ns 2 Mcg-0.125% 100 Ml) 100 ml EPIDUR ASDIRECTED JOSUÉ Lactated Ringer's (Ringers, Lactated) 1,000 mls @ 100 mls/hr IV ASDIRECTED JOSUÉ Last Admin: 05/19/19 11:00 Dose: 999 mls/hr Oxytocin/Lactated Ringer's (Pitocin In Lr 10 Units/1,000 Ml) 10 unit in 1,000 mls @ 12 mls/hr IV TITRATE JSOUÉ; Protocol Last Titration: 05/19/19 10:21 Dose: 12 munits/min, 72 mls/hr Oxytocin/Lactated Ringer's (Pitocin In Lr 10 Units/1,000 Ml) 10 unit in 1,000 mls @ 500 mls/hr IV .CONTINUOUS JOSUÉ Nalbuphine HCl (Nubain) 10 mg IVPUSH Q2H PRN PRN Reason: Pain Ondansetron HCl (Zofran) 4 mg IVPUSH Q4H PRN PRN Reason: Nausea/Vomiting Sodium Chloride (Saline Flush) 10 ml FLUSH ASDIRECTED PRN PRN Reason: Keep Vein Open Discontinued Medications Lactated Ringer's (Ringers, Lactated) Confirm Administered Dose 1,000 mls @ as directed .ROUTE .STK-MED ONE Stop: 05/19/19 07:32 Last Admin: 05/19/19 09:39 Dose: Not Given Lidocaine HCl (Xylocaine 1%) 20 ml INJECT ONETIME ONE Stop: 05/19/19 07:23
[2019-05-19] MEDS ORDERED: Bupivacaine/fentaNYL/NS 100 ML Bag EPIDUR SCH (11:15)
--- NOTE | 2019-05-19 15:27 | PCM.DEL ---
L & D Note - General Info Date of Service: 05/19/19 Mother's Due Date: 05/23/19 - Delivery Note Labor: Augmented by ARM, Augmented by Oxytocin Cervical Ripening Method: Oxytocin Delivery Outcome: Livebirth (Female liveborn Saturday05/19/2019 at 1506 hrs, under epidural over no episiotomy with 2nd degree laceration, VIELKA 3990 g/8#12.7 oz APGARS 8/9) Infant Delivery Method: Spontaneous Vaginal Delivery-Single Infant Delivery Mode: Spontaneous Presentation: Left Occiput Anterior (VIELKA) Nuchal Cord: None Prep: Povidone-Iodine (Betadine Anesthesia Type: Epidural Amniotic Fluid Description: Clear Episiotomy Type: None Laceration: 2nd Degree Suture type: Other (Repaired with Monocryl 301) Suture size: 3-0 Placenta: Intact, Spontaneous (Spontaneous Saturday05/19/19 at 1508 hrs. examined and tacked discarded) Cord: 3 Vessels Resuscitation Needed: No (250) : Suctioned, Bulb Syringe, Stimulated, Warmed, [place] Used, Warmer Used Provider: Wilberto Castellano Score 1 min: 8 Score 5 min: 9 - General Info Date of Service: 05/19/19 Admission Dx/Problem (Free Text): Admission Diagnosis/Problem Admission Diagnosis/Problem Term Functional Status: Reports: Pain Controlled - Review of Systems General: Reports: No Symptoms HEENT: Reports: No Symptoms Pulmonary: Reports: No Symptoms Cardiovascular: Reports: No Symptoms Gastrointestinal: Reports: No Symptoms Genitourinary: Reports: No Symptoms Musculoskeletal: Reports: No Symptoms Skin: Reports: No Symptoms Neurological: Reports: No Symptoms Psychiatric: Reports: No Symptoms - Patient Data Vitals - Most Recent: Last Vital Signs Temp 99.4 F 05/19/19 07:22 Pulse 95 05/19/19 07:22 Resp 16 05/19/19 07:22 BP 119/73 05/19/19 07:22 Pulse Ox 97 05/19/19 07:22 Weight - Most Recent: 204 lb 14.4 oz Lab Results Last 24 Hours: Laboratory Results - last 24 hr 05/19/19 05/19/19 Range/Units 07:35 07:35 WBC 12.75 H (3.98-10.04) K/mm3 RBC 4.14 (3.98-5.22) M/mm3 Hgb 11.5 D (11.2-15.7) gm/dl Hct 35.9 (34.1-44.9) % MCV 86.7 D (79.4-94.8) fl MCH 27.8 (25.6-32.2) pg MCHC 32.0 L (32.2-35.5) g/dl RDW Std Deviation 40.2 (36.4-46.3) fL Plt Count 183 (182-369) K/mm3 MPV 12.6 H (9.4-12.3) fl Neut % (Auto) 72.5 H (34.0-71.1) % Lymph % (Auto) 17.3 L (19.3-51.7) % [place] % (Auto) 8.4 (4.7-12.5) % Eos % (Auto) 0.9 (0.7-5.8) Baso % (Auto) 0.2 (0.1-1.2) % Neut # (Auto) 9.23 H (1.56-6.13) K/mm3 Lymph # (Auto) 2.21 (1.18-3.74) K/mm3 [place] # (Auto) 1.07 H (0.24-0.36) K/mm3 Eos # (Auto) 0.12 (0.04-0.36) K/mm3 Baso # (Auto) 0.03 (0.01-0.08) K/mm3 Blood Type A POSITIVE Gel Antibody Screen Negative Med Orders - Current: Current Medications Calcium Carbonate/Glycine (Tums) 1,000 mg PO Q2H PRN PRN Reason: Indigestion Fentanyl/Bupivacaine HCl (Fentanyl/Bupivacaine/Ns 2 Mcg-0.125% 100 Ml) 100 ml EPIDUR ASDIRECTED JOSUÉ Last Admin: 05/19/19 11:15 Dose: 100 ml Lactated Ringer's (Ringers, Lactated) 1,000 mls @ 100 mls/hr IV ASDIRECTED JOSUÉ Last Admin: 05/19/19 11:00 Dose: 999 mls/hr Oxytocin/Lactated Ringer's (Pitocin In Lr 10 Units/1,000 Ml) 10 unit in 1,000 mls @ 12 mls/hr IV TITRATE JOSUÉ; Protocol Last Titration: 05/19/19 12:00 Dose: 16 munits/min, 96 mls/hr Oxytocin/Lactated Ringer's (Pitocin In Lr 10 Units/1,000 Ml) 10 unit in 1,000 mls @ 500 mls/hr IV .CONTINUOUS JOSUÉ Nalbuphine HCl (Nubain) 10 mg IVPUSH Q2H PRN PRN Reason: Pain Ondansetron HCl (Zofran) 4 mg IVPUSH Q4H PRN PRN Reason: Nausea/Vomiting Sodium Chloride (Saline Flush) 10 ml FLUSH ASDIRECTED PRN PRN Reason: Keep Vein Open Discontinued Medications Diphenhydramine HCl (Benadryl) 25 mg IVPUSH Q6H PRN PRN Reason: pruritis Stop: 05/19/19 13:00 Ephedrine Sulfate (Ephedrine Sulfate) 5 mg IVPUSH ASDIRECTED PRN PRN Reason: Hypotension Stop: 05/19/19 13:00 Fentanyl (Sublimaze) 100 mcg EPIDUR Q3H PRN PRN Reason: Pain Stop: 05/19/19 13:00 Last Admin: 05/19/19 10:57 Dose: 100 mcg Lactated Ringer's (Ringers, Lactated) Confirm Administered Dose 1,000 mls @ as directed .ROUTE .STK-MED ONE Stop: 05/19/19 07:32 Last Admin: 05/19/19 09:39 Dose: Not Given Lidocaine HCl (Xylocaine 1%) 20 ml INJECT ONETIME ONE Stop: 05/19/19 07:23 - Exam General: Alert, Oriented HEENT: Pupils Equal, Mucous Membr. Moist/[place] Neck: Supple Extremities: Normal Inspection, Non-Tender, No Pedal Edema, Normal Capillary Refill Skin: Warm, Dry, Intact Psy/Mental Status: Alert, Normal Affect, Normal Mood - Problem List & Annotations (1) 39 weeks gestation of SNOMED Code(s): 19385462 Code(s): Z3A.39 - 39 WEEKS GESTATION OF Status: Acute Current Visit: Yes (2) Encounter for full-term uncomplicated delivery SNOMED Code(s): 723750777 Code(s): O80 - ENCOUNTER FOR FULL-TERM UNCOMPLICATED DELIVERY Status: Acute Current Visit: Yes (3) Second degree perineal laceration during delivery SNOMED Code(s): 3275060 Code(s): O70.1 - SECOND DEGREE PERINEAL LACERATION DURING DELIVERY Status: Acute Current Visit: No - Problem List Review Problem List Initiated/Reviewed/Updated: No - My Orders Last 24 Hours: My Active Orders 05/19/19 07:22 Patient Status [ADT] Routine Activity as Tolerated [RC] PFP Communication Order [RC] ASDIRECTED Communication Order [RC] ASDIRECTED Communication Order [RC] ASDIRECTED Communication Order [RC] ASDIRECTED Monitoring [RC] INTERMITTENT Notify Provider [RC] ASDIRECTED Notify Provider [RC] PFP Notify Provider [RC] PRN Urinary Catheter Assessment [RC] ASDIRECTED Calcium Carbonate [Tums] 1,000 mg PO Q2H PRN Nalbuphine [Nubain] 10 mg IVPUSH Q2H PRN Ondansetron [Zofran] 4 mg IVPUSH Q4H PRN Sodium Chloride 0.9% [Saline Flush] 10 ml FLUSH ASDIRECTED PRN Electronic Heart Tones Ext w TOCO [WOMSER] Routine Electronic Heart Tones Internal [WOMSER] Per Unit Routine Peripheral IV Insertion Adult [OM.PC] Routine Resuscitation Status Routine 05/19/19 07:23 Peripheral IV Care [RC] Q2HR 05/19/19 07:24 Pump Management, Intrathecal [RC] ASDIRECTED 05/19/19 07:30 Lactated Ringers [Ringers, Lactated] 1,000 ml IV ASDIRECTED Oxytocin/Lactated Ringers [Pitocin in LR 10 Units/1,000 ML] 10 unit in 1,000 ml IV .CONTINUOUS Oxytocin/Lactated Ringers [Pitocin in LR 10 Units/1,000 ML] 10 unit in 1,000 ml IV TITRATE 05/19/19 07:35 RAPID PLASMA REAGIN,RPR [CHEM] Stat 05/19/19 Breakfast Regular Diet [DIET]
[2019-05-19] MEDS ORDERED: Witch Hazel Medicated Pads 40/Jar TOP PRN (16:31)
[2019-05-19] MEDS ORDERED: Acetaminophen 325 MG Tab PO PRN (16:31)
[2019-05-19] MEDS ORDERED: Docusate Sodium 100 MG Cap PO PRN (16:31)
[2019-05-19] MEDS ORDERED: Benzocaine/Menthol 20%-0.5% Spray 56 GM Canister TOP PRN (16:43)
[2019-05-19] MEDS: Ibuprofen 600 MG Tab PO PRN (17:03)
[2019-05-20] MEDS: Ibuprofen 600 MG Tab PO PRN ×3 (01:02→14:04)
--- NOTE | 2019-05-20 07:51 | PCM48HPAN ---
Post Anesthesia Note - EVALUATION WITHIN 48HRS OF ANESTHETIC Vital Signs in Normal Range: Yes Patient Participated in Evaluation: Yes Respiratory Function Stable: Yes Airway Patent: Yes Cardiovascular Function Stable: Yes Hydration Status Stable: Yes Pain Control Satisfactory: Yes Nausea and Vomiting Control Satisfactory: Yes Mental Status Recovered: Yes Vital Signs: Last Vital Signs Temp 36.7 C 05/20/19 03:31 Pulse 90 05/20/19 03:31 Resp 16 05/20/19 03:31 BP 99/54 L 05/20/19 03:31 Pulse Ox 98 05/20/19 03:31
--- NOTE | 2019-05-20 08:05 | PCM.DCSUM1 ---
Discharge Summary - Hospital Course Free Text/Narrative:: [facility] LIVE L/D Delivery Note Patient Name: MALLORY MONET Date of : 89 Patient Status: Inpatient Attending Provider: Wilberto Castellano Date: 05/19/19 15:21 Initialization Date: 05/19/19 15:21 L & D Note - General Info Date of Service: 05/19/19 Mother's Due Date: 05/23/19 - Delivery Note Labor: Augmented by ARM, Augmented by Oxytocin Cervical Ripening Method: Oxytocin Delivery Outcome: Livebirth (Female liveborn Saturday05/19/2019 at 1506 hrs, under epidural over no episiotomy with 2nd degree laceration, VIELKA 3990 g/8#12.7 oz APGARS 8/9) Delivery Method: Spontaneous Vaginal Delivery-Single Infant Delivery Mode: Spontaneous Presentation: Left Occiput Anterior (VIELKA) Nuchal Cord: None Prep: Povidone-Iodine (Betadine Anesthesia Type: Epidural Amniotic Fluid Description: Clear Episiotomy Type: None Laceration: 2nd Degree Suture type: Other (Repaired with Monocryl 301) Suture size: 3-0 Placenta: Intact, Spontaneous (Spontaneous Saturday05/19/19 at 1508 hrs. examined and tacked discarded) Cord: 3 Vessels Resuscitation Needed: No (250) : Suctioned, Bulb Syringe, Stimulated, Warmed, [place] Used, Warmer Used Provider: Wilberto Castellano Score 1 min: 8 Score 5 min: 9 - General Info Date of Service: 05/19/19 Admission Dx/Problem (Free Text): Admission Diagnosis/Problem Admission Diagnosis/Problem Term Functional Status: Reports: Pain Controlled - Review of Systems General: Reports: No Symptoms HEENT: Reports: No Symptoms Pulmonary: Reports: No Symptoms Cardiovascular: Reports: No Symptoms Gastrointestinal: Reports: No Symptoms Genitourinary: Reports: No Symptoms Musculoskeletal: Reports: No Symptoms Skin: Reports: No Symptoms Neurological: Reports: No Symptoms Psychiatric: Reports: No Symptoms - Patient Data Vitals - Most Recent: Last Vital Signs Temp 99.4 F 05/19/19 07:22 Pulse 95 05/19/19 07:22 Resp 16 05/19/19 07:22 BP 119/73 05/19/19 07:22 Pulse Ox 97 05/19/19 07:22 Weight - Most Recent: 204 lb 14.4 oz Lab Results Last 24 Hours: Laboratory Results - last 24 hr 05/19/19 05/19/19 Range/Units 07:35 07:35 WBC 12.75 H (3.98-10.04) K/mm3 RBC 4.14 (3.98-5.22) M/mm3 Hgb 11.5 D (11.2-15.7) gm/dl Hct 35.9 (34.1-44.9) % MCV 86.7 D (79.4-94.8) fl MCH 27.8 (25.6-32.2) pg MCHC 32.0 L (32.2-35.5) g/dl RDW Std Deviation 40.2 (36.4-46.3) fL Plt Count 183 (182-369) K/mm3 MPV 12.6 H (9.4-12.3) fl Neut % (Auto) 72.5 H (34.0-71.1) % Lymph % (Auto) 17.3 L (19.3-51.7) % [place] % (Auto) 8.4 (4.7-12.5) % Eos % (Auto) 0.9 (0.7-5.8) Baso % (Auto) 0.2 (0.1-1.2) % Neut # (Auto) 9.23 H (1.56-6.13) K/mm3 Lymph # (Auto) 2.21 (1.18-3.74) K/mm3 [place] # (Auto) 1.07 H (0.24-0.36) K/mm3 Eos # (Auto) 0.12 (0.04-0.36) K/mm3 Baso # (Auto) 0.03 (0.01-0.08) K/mm3 Blood Type A POSITIVE Gel Antibody Screen Negative Med Orders - Current: Current Medications Calcium Carbonate/Glycine (Tums) 1,000 mg PO Q2H PRN PRN Reason: Indigestion Fentanyl/Bupivacaine HCl (Fentanyl/Bupivacaine/Ns 2 Mcg-0.125% 100 Ml) 100 ml EPIDUR ASDIRECTED JOSUÉ Last Admin: 05/19/19 11:15 Dose: 100 ml Lactated Ringer's (Ringers, Lactated) 1,000 mls @ 100 mls/hr IV ASDIRECTED JOSUÉ Last Admin: 05/19/19 11:00 Dose: 999 mls/hr Oxytocin/Lactated Ringer's (Pitocin In Lr 10 Units/1,000 Ml) 10 unit in 1,000 mls @ 12 mls/hr IV TITRATE JOSUÉ; Protocol Last Titration: 05/19/19 12:00 Dose: 16 munits/min, 96 mls/hr Oxytocin/Lactated Ringer's (Pitocin In Lr 10 Units/1,000 Ml) 10 unit in 1,000 mls @ 500 mls/hr IV .CONTINUOUS JOSUÉ Nalbuphine HCl (Nubain) 10 mg IVPUSH Q2H PRN PRN Reason: Pain Ondansetron HCl (Zofran) 4 mg IVPUSH Q4H PRN PRN Reason: Nausea/Vomiting Sodium Chloride (Saline Flush) 10 ml FLUSH ASDIRECTED PRN PRN Reason: Keep Vein Open Discontinued Medications Diphenhydramine HCl (Benadryl) 25 mg IVPUSH Q6H PRN PRN Reason: pruritis Stop: 05/19/19 13:00 Ephedrine Sulfate (Ephedrine Sulfate) 5 mg IVPUSH ASDIRECTED PRN PRN Reason: Hypotension Stop: 05/19/19 13:00 Fentanyl (Sublimaze) 100 mcg EPIDUR Q3H PRN PRN Reason: Pain Stop: 05/19/19 13:00 Last Admin: 05/19/19 10:57 Dose: 100 mcg Lactated Ringer's (Ringers, Lactated) Confirm Administered Dose 1,000 mls @ as directed .ROUTE .STK-MED ONE Stop: 05/19/19 07:32 Last Admin: 05/19/19 09:39 Dose: Not Given Lidocaine HCl (Xylocaine 1%) 20 ml INJECT ONETIME ONE Stop: 05/19/19 07:23 - Exam General: Alert, Oriented HEENT: Pupils Equal, Mucous Membr. Moist/[place] Neck: Supple Extremities: Normal Inspection, Non-Tender, No Pedal Edema, Normal Capillary Refill Skin: Warm, Dry, Intact Psy/Mental Status: Alert, Normal Affect, Normal Mood - Problem List & Annotations (1) 39 weeks gestation of SNOMED Code(s): 22452581 Code(s): Z3A.39 - 39 WEEKS GESTATION OF Status: Acute Current Visit: Yes (2) Encounter for full-term uncomplicated delivery SNOMED Code(s): 106742553 Code(s): O80 - ENCOUNTER FOR FULL-TERM UNCOMPLICATED DELIVERY Status: Acute Current Visit: Yes (3) Second degree perineal laceration during delivery SNOMED Code(s): 4796097 Code(s): O70.1 - SECOND DEGREE PERINEAL LACERATION DURING DELIVERY Status: Acute Current Visit: No - Problem List Review Problem List Initiated/Reviewed/Updated: No - My Orders Last 24 Hours: My Active Orders 05/19/19 07:22 Patient Status [ADT] Routine Activity as Tolerated [RC] PFP Communication Order [RC] ASDIRECTED Communication Order [RC] ASDIRECTED Communication Order [RC] ASDIRECTED Communication Order [RC] ASDIRECTED Monitoring [RC] INTERMITTENT Notify Provider [RC] ASDIRECTED Notify Provider [RC] PFP Notify Provider [RC] PRN Urinary Catheter Assessment [RC] ASDIRECTED Calcium Carbonate [Tums] 1,000 mg PO Q2H PRN Nalbuphine [Nubain] 10 mg IVPUSH Q2H PRN Ondansetron [Zofran] 4 mg IVPUSH Q4H PRN Sodium Chloride 0.9% [Saline Flush] 10 ml FLUSH ASDIRECTED PRN Electronic Heart Tones Ext w TOCO [WOMSER] Routine Electronic Heart Tones Internal [WOMSER] Per Unit Routine Peripheral IV Insertion Adult [OM.PC] Routine Resuscitation Status Routine 05/19/19 07:23 Peripheral IV Care [RC] Q2HR 05/19/19 07:24 Pump Management, Intrathecal [RC] ASDIRECTED 05/19/19 07:30 Lactated Ringers [Ringers, Lactated] 1,000 ml IV ASDIRECTED Oxytocin/Lactated Ringers [Pitocin in LR 10 Units/1,000 ML] 10 unit in 1,000 ml IV .CONTINUOUS Oxytocin/Lactated Ringers [Pitocin in LR 10 Units/1,000 ML] 10 unit in 1,000 ml IV TITRATE 05/19/19 07:35 RAPID PLASMA REAGIN,RPR [CHEM] Stat 05/19/19 Breakfast Regular Diet [DIET] HPI Initial Comments: [facility] LIVE L/D Delivery Note Patient Name: MALLORY MONET Date of : 89 Patient Status: Inpatient Attending Provider: Wilberto Castellano Date: 05/19/19 15:21 Initialization Date: 05/19/19 15:21 L & D Note - General Info Date of Service: 05/19/19 Mother's Due Date: 05/23/19 - Delivery Note Labor: Augmented by ARM, Augmented by Oxytocin Cervical Ripening Method: Oxytocin Delivery Outcome: Livebirth (Female liveborn Saturday05/19/2019 at 1506 hrs, under epidural over no episiotomy with 2nd degree laceration, VIELKA 3990 g/8#12.7 oz APGARS 8/9) Infant Delivery Method: Spontaneous Vaginal Delivery-Single Delivery Mode: Spontaneous Presentation: Left Occiput Anterior (VIELKA) Nuchal Cord: None Prep: Povidone-Iodine (Betadine Anesthesia Type: Epidural Amniotic Fluid Description: Clear Episiotomy Type: None Laceration: 2nd Degree Suture type: Other (Repaired with Monocryl 301) Suture size: 3-0 Placenta: Intact, Spontaneous (Spontaneous Saturday05/19/19 at 1508 hrs. examined and tacked discarded) Cord: 3 Vessels Resuscitation Needed: No (250) [place]: Suctioned, Bulb Syringe, Stimulated, Warmed, [place] Used, Warmer Used Provider: Wilberto Castellano Score 1 min: 8 Score 5 min: 9 - General Info Date of Service: 05/19/19 Admission Dx/Problem (Free Text): Admission Diagnosis/Problem Admission Diagnosis/Problem Term Functional Status: Reports: Pain Controlled - Review of Systems General: Reports: No Symptoms HEENT: Reports: No Symptoms Pulmonary: Reports: No Symptoms Cardiovascular: Reports: No Symptoms Gastrointestinal: Reports: No Symptoms Genitourinary: Reports: No Symptoms Musculoskeletal: Reports: No Symptoms Skin: Reports: No Symptoms Neurological: Reports: No Symptoms Psychiatric: Reports: No Symptoms - Patient Data Vitals - Most Recent: Last Vital Signs Temp 99.4 F 05/19/19 07:22 Pulse 95 05/19/19 07:22 Resp 16 05/19/19 07:22 BP 119/73 02/04/20 07:22 Pulse Ox 97 05/19/19 07:22 Weight - Most Recent: 204 lb 14.4 oz Lab Results Last 24 Hours: Laboratory Results - last 24 hr 05/19/19 05/19/19 Range/Units 07:35 07:35 WBC 12.75 H (3.98-10.04) K/mm3 RBC 4.14 (3.98-5.22) M/mm3 Hgb 11.5 D (11.2-15.7) gm/dl Hct 35.9 (34.1-44.9) % MCV 86.7 D (79.4-94.8) fl MCH 27.8 (25.6-32.2) pg MCHC 32.0 L (32.2-35.5) g/dl RDW Std Deviation 40.2 (36.4-46.3) fL Plt Count 183 (182-369) K/mm3 MPV 12.6 H (9.4-12.3) fl Neut % (Auto) 72.5 H (34.0-71.1) % Lymph % (Auto) 17.3 L (19.3-51.7) % [place] % (Auto) 8.4 (4.7-12.5) % Eos % (Auto) 0.9 (0.7-5.8) Baso % (Auto) 0.2 (0.1-1.2) % Neut # (Auto) 9.23 H (1.56-6.13) K/mm3 Lymph # (Auto) 2.21 (1.18-3.74) K/mm3 [place] # (Auto) 1.07 H (0.24-0.36) K/mm3 Eos # (Auto) 0.12 (0.04-0.36) K/mm3 Baso # (Auto) 0.03 (0.01-0.08) K/mm3 Blood Type A POSITIVE Gel Antibody Screen Negative Med Orders - Current: Current Medications Calcium Carbonate/Glycine (Tums) 1,000 mg PO Q2H PRN PRN Reason: Indigestion Fentanyl/Bupivacaine HCl (Fentanyl/Bupivacaine/Ns 2 Mcg-0.125% 100 Ml) 100 ml EPIDUR ASDIRECTED JOSUÉ Last Admin: 05/19/19 11:15 Dose: 100 ml Lactated Ringer's (Ringers, Lactated) 1,000 mls @ 100 mls/hr IV ASDIRECTED JOSUÉ Last Admin: 05/19/19 11:00 Dose: 999 mls/hr Oxytocin/Lactated Ringer's (Pitocin In Lr 10 Units/1,000 Ml) 10 unit in 1,000 mls @ 12 mls/hr IV TITRATE JOSUÉ; Protocol Last Titration: 05/19/19 12:00 Dose: 16 munits/min, 96 mls/hr Oxytocin/Lactated Ringer's (Pitocin In Lr 10 Units/1,000 Ml) 10 unit in 1,000 mls @ 500 mls/hr IV .CONTINUOUS JOSUÉ Nalbuphine HCl (Nubain) 10 mg IVPUSH Q2H PRN PRN Reason: Pain Ondansetron HCl (Zofran) 4 mg IVPUSH Q4H PRN PRN Reason: Nausea/Vomiting Sodium Chloride (Saline Flush) 10 ml FLUSH ASDIRECTED PRN PRN Reason: Keep Vein Open Discontinued Medications Diphenhydramine HCl (Benadryl) 25 mg IVPUSH Q6H PRN PRN Reason: pruritis Stop: 05/19/19 13:00 Ephedrine Sulfate (Ephedrine Sulfate) 5 mg IVPUSH ASDIRECTED PRN PRN Reason: Hypotension Stop: 05/19/19 13:00 Fentanyl (Sublimaze) 100 mcg EPIDUR Q3H PRN PRN Reason: Pain Stop: 05/19/19 13:00 Last Admin: 05/19/19 10:57 Dose: 100 mcg Lactated Ringer's (Ringers, Lactated) Confirm Administered Dose 1,000 mls @ as directed .ROUTE .STK-MED ONE Stop: 05/19/19 07:32 Last Admin: 05/19/19 09:39 Dose: Not Given Lidocaine HCl (Xylocaine 1%) 20 ml INJECT ONETIME ONE Stop: 05/19/19 07:23 - Exam General: Alert, Oriented HEENT: Pupils Equal, Mucous Membr. Moist/[place] Neck: Supple Extremities: Normal Inspection, Non-Tender, No Pedal Edema, Normal Capillary Refill Skin: Warm, Dry, Intact Psy/Mental Status: Alert, Normal Affect, Normal Mood - Problem List & Annotations (1) 39 weeks gestation of SNOMED Code(s): 31388668 Code(s): Z3A.39 - 39 WEEKS GESTATION OF Status: Acute Current Visit: Yes (2) Encounter for full-term uncomplicated delivery SNOMED Code(s): 246021115 Code(s): O80 - ENCOUNTER FOR FULL-TERM UNCOMPLICATED DELIVERY Status: Acute Current Visit: Yes (3) Second degree perineal laceration during delivery SNOMED Code(s): 1967137 Code(s): O70.1 - SECOND DEGREE PERINEAL LACERATION DURING DELIVERY Status: Acute Current Visit: No - Problem List Review Problem List Initiated/Reviewed/Updated: No - My Orders Last 24 Hours: My Active Orders 05/19/19 07:22 Patient Status [ADT] Routine Activity as Tolerated [RC] PFP Communication Order [RC] ASDIRECTED Communication Order [RC] ASDIRECTED Communication Order [RC] ASDIRECTED Communication Order [RC] ASDIRECTED Monitoring [RC] INTERMITTENT Notify Provider [RC] ASDIRECTED Notify Provider [RC] PFP Notify Provider [RC] PRN Urinary Catheter Assessment [RC] ASDIRECTED Calcium Carbonate [Tums] 1,000 mg PO Q2H PRN Nalbuphine [Nubain] 10 mg IVPUSH Q2H PRN Ondansetron [Zofran] 4 mg IVPUSH Q4H PRN Sodium Chloride 0.9% [Saline Flush] 10 ml FLUSH ASDIRECTED PRN Electronic Heart Tones Ext w TOCO [WOMSER] Routine Electronic Heart Tones Internal [WOMSER] Per Unit Routine Peripheral IV Insertion Adult [OM.PC] Routine Resuscitation Status Routine 05/19/19 07:23 Peripheral IV Care [RC] Q2HR 05/19/19 07:24 Pump Management, Intrathecal [RC] ASDIRECTED 05/19/19 07:30 Lactated Ringers [Ringers, Lactated] 1,000 ml IV ASDIRECTED Oxytocin/Lactated Ringers [Pitocin in LR 10 Units/1,000 ML] 10 unit in 1,000 ml IV .CONTINUOUS Oxytocin/Lactated Ringers [Pitocin in LR 10 Units/1,000 ML] 10 unit in 1,000 ml IV TITRATE 05/19/19 07:35 RAPID PLASMA REAGIN,RPR [CHEM] Stat 05/19/19 Breakfast Regular Diet [DIET] Brief History: [facility] LIVE . L[facility]D [facility]. [facility] [id number]. Date of : Patient Status: Inpatient. Attending Provider: Wilberto Castellano Number: [id number]. Date: 05/19/19 15:21Initialization Date: 05/19/19 15:21. L & D Note. - General Info. Date of Service: 05/19/19. Mother's Due Date: 05/23/19. - Delivery Note. Labor: Augmented by ARM, Augmented by Oxytocin. Cervical Ripening Method: Oxytocin. Delivery Outcome: Livebirth (Female liveborn Saturday05/19/2019 at 1506 hrs, under epidural over no episiotomy with 2nd degree laceration, VIELKA 3990 g/8#12.7 oz APGARS 8/9). Infant Delivery Method : Spontaneous Vaginal Delivery-Single. Delivery Mode: Spontaneous. Presentation: Left Occiput Anterior (VIELKA). Nuchal Cord: None. Prep: Povidone-Iodine (Betadine. Anesthesia Type: Epidural. Amniotic Fluid Description: Clear. Episiotomy Type: None. Laceration: 2nd Degree. Suture type: Other (Repaired with Monocryl 301). Suture size: 3-0. Placenta: Intact , Spontaneous (Spontaneous Saturday05/19/19 at 1508 hrs. examined and tacked discarded). Cord: 3 Vessels. Resuscitation Needed: No (250). [place]: Suctioned, Bulb Syringe, Stimulated, Warmed, [place] Used, Warmer Used. Provider: Wilberto Castellano. Score 1 min: 8. Score 5 min : 9. - General Info. Date of Service: 05/19/19. Admission Dx/Problem (Free Text): Admission Diagnosis/Problem. Admission Diagnosis/Problem Term . Functional Status: Reports: Pain Controlled. - Review of Systems. General: Reports: No Symptoms. HEENT: Reports: No Symptoms. Pulmonary: Reports : No Symptoms. Cardiovascular: Reports: No Symptoms. Gastrointestinal: Reports : No Symptoms. Genitourinary: Reports: No Symptoms. Musculoskeletal: Reports: No Symptoms. Skin: Reports: No Symptoms. Neurological: Reports: No Symptoms. Psychiatric: Reports: No Symptoms. - Patient Data. Vitals - Most Recent: Last Vital Signs. Temp 99.4 F 05/19/19 07:22. Pulse 95 05/19/19 07:22. Resp 16 05/19/19 07:22. BP 119/73 05/19/19 07:22. Pulse Ox 97 05/19/19 07: 22. Weight - Most Recent: 204 lb 14.4 oz. Lab Results Last 24 Hours: Laboratory Results - last 24 hr. 05/19/2001/08/02Range/Units. 07:3507:35. WBC 12.75 H (3.98-10.04) K/mm3. RBC 4.14 (3.98-5.22) M/mm3. Hgb 11.5 D ( 11.2-15.7) gm/dl. Hct 35.9 (34.1-44.9) %. MCV 86.7 D (79.4-94.8) fl. MCH 27.8 (25.6-32.2) pg. MCHC 32.0 L (32.2-35.5) g/dl. RDW Std Deviation 40.2 ( 36.4-46.3) fL. Plt Count 183 (182-369) K/mm3. MPV 12.6 H (9.4-12.3) fl. Neut % (Auto) 72.5 H (34.0-71.1) %. Lymph % (Auto) 17.3 L (19.3-51.7) %. [place] % (Auto) 8.4 (4.7-12.5) %. Eos % (Auto) 0.9 (0.7-5.8). Baso % (Auto) 0.2 (0.1-1.2) %. Neut # (Auto) 9.23 H (1.56-6.13) K/mm3. Lymph # (Auto) 2.21 (1.18-3.74) K/mm3. [place] # (Auto) 1.07 H (0.24-0.36) K/mm3. Eos # (Auto ) 0.12 (0.04-0.36) K/mm3. Baso # (Auto) 0.03 (0.01-0.08) K/mm3. Blood Type A POSITIVE. Gel Antibody Screen Negative. Med Orders - Current: Current Medications. Calcium Carbonate/Glycine (Tums) 1,000 mg PO Q2H PRN. PRN Reason : Indigestion. Fentanyl/Bupivacaine HCl (Fentanyl/Bupivacaine/Ns 2 Mcg-0.125% 100 Ml) 100 ml EPIDUR ASDIRECTED JOSUÉ. Last Admin: 05/19/19 11:15 Dose: 100 ml. Lactated Ringer's (Ringers, Lactated) 1,000 mls @ 100 mls/hr IV ASDIRECTED JOSUÉ. Last Admin: 05/19/19 11:00 Dose: 999 mls/hr. Oxytocin/ Lactated Ringer's (Pitocin In Lr 10 Units/1,000 Ml) 10 unit in 1,000 mls @ 12 mls/hr IV TITRATE JOSUÉ; Protocol. Last Titration: 05/19/19 12:00 Dose: 16 munits/min, 96 mls/hr. Oxytocin/Lactated Ringer's (Pitocin In Lr 10 Units/1, 000 Ml) 10 unit in 1,000 mls @ 500 mls/hr IV .CONTINUOUS JOSUÉ. Nalbuphine HCl ( Nubain) 10 mg IVPUSH Q2H PRN. PRN Reason: Pain. Ondansetron HCl (Zofran) 4 mg IVPUSH Q4H PRN. PRN Reason: Nausea/Vomiting. Sodium Chloride (Saline Flush ) 10 ml FLUSH ASDIRECTED PRN. PRN Reason: Keep Vein Open. Discontinued Medications. Diphenhydramine HCl (Benadryl) 25 mg IVPUSH Q6H PRN. PRN Reason : pruritis. Stop: 05/19/19 13:00. Ephedrine Sulfate (Ephedrine Sulfate) 5 mg IVPUSH ASDIRECTED PRN. PRN Reason: Hypotension. Stop: 05/19/19 13:00. Fentanyl (Sublimaze) 100 mcg EPIDUR Q3H PRN. PRN Reason: Pain. Stop: 13:00. Last Admin: 05/19/19 10:57 Dose: 100 mcg. Lactated Ringer's ( Ringers, Lactated) Confirm Administered Dose 1,000 mls @ as directed .ROUTE .STK -MED ONE. Stop: 05/19/19 07:32. Last Admin: 05/19/19 09:39 Dose: Not Given. Lidocaine HCl (Xylocaine 1%) 20 ml INJECT ONETIME ONE. Stop: 05/19/19 07:23. - Exam. General: Alert, Oriented. HEENT: Pupils Equal, Mucous Membr. Moist/ [place]. Neck: Supple. Extremities: Normal Inspection, Non-Tender, No Pedal Edema , Normal Capillary Refill. Skin: Warm, Dry, Intact. Psy/Mental Status: Alert, Normal Affect, Normal Mood. - Problem List & Annotations. (1) 39 weeks gestation of . SNOMED Code(s): 68865206. Code(s): Z3A.39 - 39 WEEKS GESTATION OF Status: Acute Current Visit: Yes. (2) Encounter for full-term uncomplicated delivery. SNOMED Code(s): 912441679. Code(s): O80 - ENCOUNTER FOR FULL-TERM UNCOMPLICATED DELIVERY Status: Acute Current Visit: Yes. (3) Second degree perineal laceration during delivery. SNOMED Code(s): 9655215. Code(s): O70.1 - SECOND DEGREE PERINEAL LACERATION DURING DELIVERY Status: Acute Current Visit: No. - Problem List Review. Problem List Initiated/Reviewed/Updated: No. - My Orders. Last 24 Hours: My Active Orders. 05/19/19 07:22. Patient Status [ADT] Routine. Activity as Tolerated [ RC] PFP. Communication Order [RC] ASDIRECTED. Communication Order [RC] ASDIRECTED. Communication Order [RC] ASDIRECTED. Communication Order [RC] ASDIRECTED. Monitoring [RC] INTERMITTENT. Notify Provider [RC] ASDIRECTED. Notify Provider [RC] PFP. Notify Provider [RC] PRN. Urinary Catheter Assessment [RC] ASDIRECTED. Calcium Carbonate [Tums] 1,000 mg PO Q2H PRN. Nalbuphine [Nubain] 10 mg IVPUSH Q2H PRN. Ondansetron [Zofran] 4 mg IVPUSH Q4H PRN. Sodium Chloride 0.9% [Saline Flush] 10 ml FLUSH ASDIRECTED PRN. Electronic Heart Tones Ext w TOCO [WOMSER] Routine. Electronic Heart Tones Internal [WOMSER] Per Unit Routine. Peripheral IV Insertion Adult [OM.PC] Routine. Resuscitation Status Routine. 05/19/19 07: 23. Peripheral IV Care [RC] Q2HR. 05/19/19 07:24. Pump Management, Intrathecal [RC] ASDIRECTED. 05/19/19 07:30. Lactated Ringers [Ringers, Lactated] 1,000 ml IV ASDIRECTED. Oxytocin/Lactated Ringers [Pitocin in LR 10 Units/1,000 ML] 10 unit in 1,000 ml IV .CONTINUOUS. Oxytocin/Lactated Ringers [ Pitocin in LR 10 Units/1,000 ML] 10 unit in 1,000 ml IV TITRATE. 05/19/19 07: 35. RAPID PLASMA REAGIN,RPR [CHEM] Stat. 05/19/19 Breakfast. Regular Diet [ DIET] Diagnosis: Stroke: No - Discharge Data Discharge Date: 05/20/19 Discharge Disposition: Home, Self-Care 01 Condition: Good - Referral to Home Health Primary Care Physician: Wilberto Castellano MD - Discharge Diagnosis/Problem(s) (1) 39 weeks gestation of SNOMED Code(s): 73544281 ICD Code: Z3A.39 - 39 WEEKS GESTATION OF Status: Acute Current Visit: Yes (2) Encounter for full-term uncomplicated delivery SNOMED Code(s): 775022209 ICD Code: O80 - ENCOUNTER FOR FULL-TERM UNCOMPLICATED DELIVERY Status: Acute Current Visit: Yes (3) Second degree perineal laceration during delivery SNOMED Code(s): 0137481 ICD Code: O70.1 - SECOND DEGREE PERINEAL LACERATION DURING DELIVERY Status : Acute Current Visit: No - Patient Summary/Data Complications: None Consults: none Hospital Course: uneventful - Patient Instructions Diet: Usual Diet as Tolerated Driving: Do Not Drive (x48 hrs) Showering/Bathing: May Shower Notify Provider of: Fever, Increased Pain, Swelling and Redness, Drainage, Nausea and/or Vomiting - Discharge Plan *PRESCRIPTION DRUG MONITORING PROGRAM REVIEWED*: Not Applicable *COPY OF PRESCRIPTION DRUG MONITORING REPORT IN PATIENT KENDRA: Not Applicable Home Medications: Home Meds No122/Iron/Folic Acid [ Multi Tablet] 1 each PO DAILY 05/19/19 [History] Acetaminophen [Tylenol] 650 mg PO Q6H PRN tablet 05/20/19 [Rx] Benzocaine/Menthol [Dermoplast Pain Relief [place]] 0 gm TOP ASDIRECTED PRN canister 05/20/19 [Rx] Docusate Sodium [Colace] 100 mg PO BID PRN cap 05/20/19 [Rx] Ibuprofen [Motrin] 600 mg PO Q6H PRN tablet 05/20/19 [Rx] Patsy Hendrickson [Tucks] 1 pad TOP ASDIRECTED PRN pad 05/20/19 [Rx] Referrals: Wilberto Castellano MD [Primary Care Provider] - (2 weeks) - Discharge Summary/Plan Comment DC Time >30 min.: No - Patient Data Vitals - Most Recent: Last Vital Signs Temp 98.1 F 05/20/19 03:31 Pulse 90 05/20/19 03:31 Resp 16 05/20/19 03:31 BP 99/54 L 05/20/19 03:31 Pulse Ox 98 05/20/19 03:31 Weight - Most Recent: 204 lb 14.4 oz Lab Results - Last 24 hrs: Laboratory Results - last 24 hr 05/19/19 05/19/19 05/19/19 Range/Units 07:35 07:35 07:35 WBC 12.75 H (3.98-10.04) K/mm3 RBC 4.14 (3.98-5.22) M/mm3 Hgb 11.5 D (11.2-15.7) gm/dl Hct 35.9 (34.1-44.9) % MCV 86.7 D (79.4-94.8) fl MCH 27.8 (25.6-32.2) pg MCHC 32.0 L (32.2-35.5) g/dl RDW Std Deviation 40.2 (36.4-46.3) fL Plt Count 183 (182-369) K/mm3 MPV 12.6 H (9.4-12.3) fl Neut % (Auto) 72.5 H (34.0-71.1) % Lymph % (Auto) 17.3 L (19.3-51.7) % [place] % (Auto) 8.4 (4.7-12.5) % Eos % (Auto) 0.9 (0.7-5.8) Baso % (Auto) 0.2 (0.1-1.2) % Neut # (Auto) 9.23 H (1.56-6.13) K/mm3 Lymph # (Auto) 2.21 (1.18-3.74) K/mm3 [place] # (Auto) 1.07 H (0.24-0.36) K/mm3 Eos # (Auto) 0.12 (0.04-0.36) K/mm3 Baso # (Auto) 0.03 (0.01-0.08) K/mm3 RPR Non-reactive (NONREACTIVE) Blood Type A POSITIVE Gel Antibody Screen Negative 05/20/19 Range/Units 05:35 WBC 15.17 H (3.98-10.04) K/mm3 RBC 4.26 (3.98-5.22) M/mm3 Hgb 11.7 (11.2-15.7) gm/dl Hct 37.1 (34.1-44.9) % MCV 87.1 (79.4-94.8) fl MCH 27.5 (25.6-32.2) pg MCHC 31.5 L (32.2-35.5) g/dl RDW Std Deviation 40.8 (36.4-46.3) fL Plt Count 187 (182-369) K/mm3 MPV 12.4 H (9.4-12.3) fl Neut % (Auto) 74.8 H (34.0-71.1) % Lymph % (Auto) 17.2 L (19.3-51.7) % [place] % (Auto) 6.7 (4.7-12.5) % Eos % (Auto) 0.6 L (0.7-5.8) Baso % (Auto) 0.2 (0.1-1.2) % Neut # (Auto) 11.36 H (1.56-6.13) K/mm3 Lymph # (Auto) 2.61 (1.18-3.74) K/mm3 [place] # (Auto) 1.01 H (0.24-0.36) K/mm3 Eos # (Auto) 0.09 (0.04-0.36) K/mm3 Baso # (Auto) 0.03 (0.01-0.08) K/mm3 RPR (NONREACTIVE) Blood Type Gel Antibody Screen Med Orders - Current: Current Medications Acetaminophen (Tylenol) 650 mg PO Q4H PRN PRN Reason: mild pain or fever Benzocaine/Menthol (Dermoplast Pain Relief [place]) 0 gm TOP ASDIRECTED PRN PRN Reason: perineal discomfort Last Admin: 05/19/19 17:05 Dose: 1 can Docusate Sodium (Colace) 100 mg PO BID PRN PRN Reason: Constipation Last Admin: 05/19/19 17:03 Dose: 100 mg Ibuprofen (Motrin) 600 mg PO Q4H PRN PRN Reason: Mild pain or fever Last Admin: 05/20/19 01:02 Dose: 600 mg Witch Madhavi (Tucks) 1 pad TOP ASDIRECTED PRN PRN Reason: Perineal Comfort Measure Last Admin: 05/19/19 17:05 Dose: 1 container Discontinued Medications Calcium Carbonate/Glycine (Tums) 1,000 mg PO Q2H PRN PRN Reason: Indigestion Diphenhydramine HCl (Benadryl) 25 mg IVPUSH Q6H PRN PRN Reason: pruritis Stop: 05/19/19 13:00 Ephedrine Sulfate (Ephedrine Sulfate) 5 mg IVPUSH ASDIRECTED PRN PRN Reason: Hypotension Stop: 05/19/19 13:00 Fentanyl (Sublimaze) 100 mcg EPIDUR Q3H PRN PRN Reason: Pain Stop: 05/19/19 13:00 Last Admin: 05/19/19 10:57 Dose: 100 mcg Fentanyl/Bupivacaine HCl (Fentanyl/Bupivacaine/Ns 2 Mcg-0.125% 100 Ml) 100 ml EPIDUR ASDIRECTED JOSUÉ Last Admin: 05/19/19 11:15 Dose: 100 ml Lactated Ringer's (Ringers, Lactated) 1,000 mls @ 100 mls/hr IV ASDIRECTED JOSUÉ Last Admin: 05/19/19 11:00 Dose: 999 mls/hr Oxytocin/Lactated Ringer's (Pitocin In Lr 10 Units/1,000 Ml) 10 unit in 1,000 mls @ 12 mls/hr IV TITRATE JOSUÉ; Protocol Last Titration: 05/19/19 15:07 Dose: 999 mls/hr Oxytocin/Lactated Ringer's (Pitocin In Lr 10 Units/1,000 Ml) 10 unit in 1,000 mls @ 500 mls/hr IV .CONTINUOUS JOSUÉ Last Admin: 05/19/19 15:43 Dose: 999 mls/hr Lactated Ringer's (Ringers, Lactated) Confirm Administered Dose 1,000 mls @ as directed .ROUTE .STK-MED ONE Stop: 05/19/19 07:32 Last Admin: 05/19/19 09:39 Dose: Not Given Lidocaine HCl (Xylocaine 1%) 20 ml INJECT ONETIME ONE Stop: 05/19/19 07:23 Last Admin: 05/19/19 19:27 Dose: Not Given Nalbuphine HCl (Nubain) 10 mg IVPUSH Q2H PRN PRN Reason: Pain Ondansetron HCl (Zofran) 4 mg IVPUSH Q4H PRN PRN Reason: Nausea/Vomiting Sodium Chloride (Saline Flush) 10 ml FLUSH ASDIRECTED PRN PRN Reason: Keep Vein Open
[2019-05-20 14:56] VITALS: BP 110/70; PULSE 86
== END 2019-05-20 16:15 | disposition home or self-care (01) | DRG 807 ==
LOC: JD.OB 06:36 → OBSVTOIN 15:06 → JD.OB 15:06
PROVIDERS: ADMIT Obstetrics & Gynecology; ATTEND Obstetrics & Gynecology
PROC: 10E0XZZ Delivery of Products of Conception, External Approach (ICD-10-PCS; principal; 2019-05-19)
PROC: 0KQM0ZZ Repair Perineum Muscle, Open Approach (ICD-10-PCS; 2019-05-19)
PROC: 10907ZC Drainage of Amniotic Fluid, Therapeutic from Products of Conception, Via Natural or Artificial Opening (ICD-10-PCS; 2019-05-19)
PROC: 3E0P7VZ Introduction of Hormone into Female Reproductive, Via Natural or Artificial Opening (ICD-10-PCS; 2019-05-19)
PROC: 3E0R3BZ Introduction of Anesthetic Agent into Spinal Canal, Percutaneous Approach (ICD-10-PCS; 2019-05-19)
DX: O70.1 Second degree perineal laceration during delivery (principal); Z37.0 Single live birth; Z79.899 Other long term (current) drug therapy; Z3A.39 39 weeks gestation of pregnancy
CPT/HCPCS: 01967; 36415; 51702; 59025; 59409; 85025; 86592; 86850; 86900; 86901; A9270-GY; J2590; J3010; J3490; J7120